=== PATIENT | female | born 1985 | race Caucasian/White ===

== ENCOUNTER 2017-09-28 12:32 | Inpatient (IN) | payer OTHER ==
[2017-09-28 14:14] LABS: ADD MAN DIFF? NO
[2017-09-28 14:21] LABS: WHITE BLOOD COUNT 7.9 10^3/ul (4.8-10.8)
[2017-09-28 14:21] LABS: HEMATOCRIT 32.9 % (37.0-47.0); HEMOGLOBIN 10.8 g/dl (12.0-16.0); MEAN CORPUSCULAR HGB CONC 32.8 g/dl (32.0-37.0); MEAN CORPUSCULAR VOLUME 88.4 fl (82.0-101.0); RED BLOOD COUNT 3.72 10^6/ul (4.20-5.40)
[2017-09-28 14:22] LABS: BASOPHILS % 0.5 % (0.0-2.0); EOSINOPHILS % 1.6 % (0.0-7.0); LYMPHOCYTES % 19.9 % (15.0-51.0); MEAN PLATELET VOLUME 11.6 fl (7.4-10.4); MONOCYTES % 5.8 % (0.0-11.0); NEUTROPHILS % 71.4 % (39.0-77.0); PLATELET COUNT 202 10^3/UL (140-415); RED CELL DISTRIBUTION WIDTH 14.9 % (11.5-14.5)
[2017-09-28] MEDS ORDERED: OXYTOCIN 30 UNITS/LR 500 ML IV ×2 (14:30)
[2017-09-28] MEDS ORDERED: MISOPROSTOL 200 MCG TAB PR (14:30)
[2017-09-28] MEDS ORDERED: METHYLERGONOVINE 0.2 MG INJ IM (14:30)
[2017-09-28] MEDS ORDERED: BUTORPHANOL 2 MG INJ IV (14:30)
[2017-09-28] MEDS ORDERED: CARBOPROST 250 MCG INJ IM (14:30)
[2017-09-28] MEDS: AMPICILLIN 2 GM/NS (PMX) 100 ML IV (14:34)
[2017-09-28] MEDS: LACTATED RINGER'S 1,000 ML IV ×2 (14:34→15:22)
[2017-09-28 14:37] LABS: INR 1.01; PARTIAL THROMBOPLASTIN TIME 29.2 Sec (25.0-35.0); PROTIME 13.4 Sec (11.9-14.9)
[2017-09-28 14:45] LABS: AMPHETAMINE/METHAMPHETAMINE Negative (NEGATIVE); BARBITURATES Negative (NEGATIVE); BENZODIAZEPINES Negative (NEGATIVE); CANNABINOIDS Negative (NEGATIVE); COCAINE Negative (NEGATIVE); OPIATES Negative (NEGATIVE)
[2017-09-28] MEDS ORDERED: FENTAnyl 2MCG/ML-ROPIV 0.2% 100 ML (15:11)
[2017-09-28] MEDS: DEXTROSE 5%-LR 1,000 ML IV (17:03)
[2017-09-28 18:07] LABS: RAPID PLASMA REAGIN NONREACTIVE (NR)
[2017-09-28] MEDS: AMPICILLIN 1 GM/NS (PMX) 50 ML IV ×2 (18:40→22:26)
[2017-09-28] MEDS: FENTAnyl 2MCG/ML-ROPIV 0.2% 100 ML BAG EPI (20:13)
[2017-09-28] MEDS ORDERED: NALOXONE (0.4 MG/ML) INJ IV (20:30)
[2017-09-28] MEDS: OXYTOCIN 30 UNITS/LR 500 ML IV (20:45)
[2017-09-29] MEDS: DEXTROSE 5%-LR 1,000 ML IV ×2 (00:56→08:56)
[2017-09-29] MEDS: AMPICILLIN 1 GM/NS (PMX) 50 ML IV ×2 (01:54→05:32)
[2017-09-29] MEDS: LACTATED RINGER'S 1,000 ML IV (01:54)
[2017-09-29] MEDS: FENTAnyl 2MCG/ML-ROPIV 0.2% 100 ML BAG EPI (03:19)
[2017-09-29] MEDS ORDERED: ONDANSETRON 4 MG INJ (06:31)
[2017-09-29] MEDS: ONDANSETRON 4 MG INJ IV (06:35)
[2017-09-29] MEDS: OXYTOCIN 30 UNITS/LR 500 ML IV ×2 (07:45→12:25)
[2017-09-29] MEDS: LIDOCAINE 1% (MPF) 30 ML INJ INJ (08:07)
[2017-09-29] MEDS: OXYCODONE/ASPIRIN (4.88/325) TAB PO (08:28)
[2017-09-29] MEDS ORDERED: ONDANSETRON 4 MG INJ IV (12:30)
[2017-09-29] MEDS ORDERED: MISOPROSTOL 200 MCG TAB PR (12:30)
[2017-09-29] MEDS ORDERED: METHYLERGONOVINE 0.2 MG INJ IM (12:30)
[2017-09-29] MEDS: IBUPROFEN 600 MG TAB PO ×3 (12:30→23:55)
[2017-09-29] MEDS ORDERED: OXYTOCIN 30 UNITS/LR 500 ML IV (12:30)
[2017-09-29] MEDS ORDERED: ZOLPIDEM 5 MG TAB PO (12:30)
[2017-09-29] MEDS ORDERED: DIPHENHYDRAMINE 25 MG CAP PO (12:30)
[2017-09-29] MEDS ORDERED: NACL 0.9% 3 ML SYG IV (12:30)
[2017-09-29] MEDS ORDERED: CARBOPROST 250 MCG INJ IM (12:30)
[2017-09-29] MEDS: WITCH HAZEL/GLYCERIN PAD PR (13:37)
[2017-09-29] MEDS: HYDROCODONE/APAP (5/325) TAB PO ×2 (13:37→20:59)
[2017-09-29] MEDS: SENNA/DOCUSATE NA (8.6MG/50MG) TAB PO (20:59)
[2017-09-30] MEDS: HYDROCODONE/APAP (5/325) TAB PO ×3 (04:28→20:25)
[2017-09-30] MEDS: IBUPROFEN 600 MG TAB PO ×4 (05:50→23:31)
[2017-09-30] MEDS: SENNA/DOCUSATE NA (8.6MG/50MG) TAB PO ×2 (09:13→20:24)
[2017-09-30 10:31] LABS: ADD MAN DIFF? NO
[2017-09-30 10:35] LABS: WHITE BLOOD COUNT 11.3 10^3/ul (4.8-10.8)
[2017-09-30 10:35] LABS: BASOPHIL # 0.1 10^3/ul (0.0-0.1); BASOPHILS % 0.4 % (0.0-2.0); EOSINOPHILS # 0.1 10^3/ul (0.0-0.5); EOSINOPHILS % 1.2 % (0.0-7.0); HEMATOCRIT 33.4 % (37.0-47.0); HEMOGLOBIN 10.7 g/dl (12.0-16.0); LYMPHOCYTES % 17.5 % (15.0-51.0); MEAN CORPUSCULAR VOLUME 90.5 fl (82.0-101.0); MEAN PLATELET VOLUME 11.3 fl (7.4-10.4); MONOCYTE # 0.6 10^3/ul (0.3-0.9); MONOCYTES % 5.1 % (0.0-11.0); NEUTROPHIL # 8.5 10^3/ul (1.6-7.5); NEUTROPHILS % 75.3 % (39.0-77.0); PLATELET COUNT 212 10^3/UL (140-415); RED BLOOD COUNT 3.69 10^6/ul (4.20-5.40); RED CELL DISTRIBUTION WIDTH 14.9 % (11.5-14.5)
[2017-10-01] MEDS: HYDROCODONE/APAP (5/325) TAB PO ×2 (03:15→09:12)
[2017-10-01] MEDS: IBUPROFEN 600 MG TAB PO ×2 (05:46→13:04)
[2017-10-01] MEDS: SENNA/DOCUSATE NA (8.6MG/50MG) TAB PO (09:12)
== END 2017-10-01 14:25 | disposition home or self-care (01) | DRG 775 ==
LOC: OBT 12:32 → PP1 09-29 09:51 → L-D 12:34 → OBT 12:59 → L-D 12:52
PROC: 10E0XZZ Delivery of Products of Conception, External Approach (ICD-10-PCS; principal; 2017-09-29)
PROC: 0HQ9XZZ Repair Perineum Skin, External Approach (ICD-10-PCS; 2017-09-29)
DX: O24.419 Gestational diabetes mellitus in pregnancy, unspecified control (principal); Z3A.36 36 weeks gestation of pregnancy; Z37.0 Single live birth; O70.0 First degree perineal laceration during delivery
CPT/HCPCS: 62319; 76815; 80307; 82962; 85025; 85610; 85730; 86592; 86850; 86900; 86901